=== PATIENT | female | born 2000 | race Caucasian/White ===

== ENCOUNTER → 2025-04-15 | Outpatient (CLI) | payer BC, SELFPAY ==
[2025-04-15 11:40] LABS: Glucose Estimated Average 160 mg/dL (80-131); Hemoglobin A1C 7.2 % Hgb (4.8-6.0)
== END | disposition home or self-care (01) ==
LOC: COPL 10:09
PROVIDERS: PCP Physician Assistant; Referring Provider Physician Assistant; Visit Provider Physician Assistant
DX: E11.9 Type 2 diabetes mellitus without complications (principal)
CPT/HCPCS: 36415; 83036